=== PATIENT | female | born 1990 | race Caucasian/White ===

== ENCOUNTER 2024-12-28 09:21 | Outpatient (AMB) | payer OTHER, SELFPAY ==
--- NOTE | 2024-12-28 09:25 | MHC.PC.OV ---
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 Allergies cephalexin (From Keflex) Allergy (Verified 12/28/24 09:29) Rash Seasonal Allergies Allergy (Verified 12/28/24 09:29) Sneezing Tobacco use date assessed: 12/28/24 Dental Screening Dental Screen Date: 12/28/24 Did you have a dental visit in the last 12 months?: Yes Did you have a dental problem in the last 6 months where you did not have access to dental care?: No Was dental information given to patient?: Patient has dentist HPI HPI Comments History of Present Illness Details This is a 34-year-old female with no significant past medical history here to establish care. She endorses chronic fatigue for the past couple of years. When she sleeps 8 hours per night she does not feel well rested in the morning consistently. She feels very tired during the day. She wants to do more things, but she does not have the energy. She endorses prior evaluation with labs and EKG that were normal at her last practice. She brought copies of these today which will be sent to scanning. She does not snore to her knowledge. She had her adenoids and tonsils removed when she was a child due to apnea. She has frequent cramping in her hands. She has 1 relative who has multiple sclerosis. She eats 3 meals per day. Admits she could be drinking more water during the day, but she makes every effort to do so. Her job is quite busy. 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 She sees [facility]. She has the Mirena IUD. Patient reports she has had microscopic blood in her urine which she was told was normal due to the IUD. Denies dysuria, frequency, gross hematuria, flank or back pain. ROS: Constitutional: No unexplained weight loss, fever, chills or night sweats. Eyes: No vision changes, blurry vision, double vision, eye pain, eye redness, eye discharge. ENT: No hearing loss, sneezing, congestion, runny nose or sore throat. Respiratory: No shortness of breath, cough or sputum production. Cardiovascular: No chest pain Gastrointestinal: No anorexia, nausea, vomiting or diarrhea. No abdominal pain or blood in stool. Genitourinary: No dysuria, hematuria, urinary frequency. Neurologic: No headache, dizziness, syncope, unilateral weakness, ataxia, numbness or tingling in the extremities. Musculoskeletal: No joint swelling or redness. No back pain. Hematologic/Lymphatics: No bleeding or bruising. No painful lymph nodes. Skin: No rash Endocrine: No cold or heat intolerance. No polyuria or polydipsia. Psychiatric: No depression or anxiety. No SI/HI. Physical exam: Constitutional: Alert, in no distress. Ear, Nose and Throat: Canals clear. TMs normal. Normal nasal mucosa. No nasal discharge. No oral lesions. Neck: Supple, Full range of motion. No lymphadenopathy. No palpable thyroid masses. Respiratory: Clear to auscultation. Cardiovascular: S1 S2 regular. No murmurs. Gastrointestinal: Abdomen soft, non-tender, non-distended. Normal bowel sounds. No palpable masses. Neurologic: No focal neurological deficits. Skin: No rashes Extremities: Warm and well perfused. No clubbing, cyanosis or edema. 3+ peripheral pulses bilaterally. Psychiatric: Normal mood and affect [facility] Medical History (Updated 12/29/24 @ 08:49 by SALONI Neil) Non-restorative sleep Migraines Screening for cardiovascular condition Hand cramp Fatigue Surgical History (Updated 12/28/24 @ 12:05 by Brittany Silveira MA) H/O removal of cyst Hx of tonsillectomy Family History (Updated 12/28/24 @ 12:07 by Brittany Silveira MA) Maternal Grandmother Hypertension Hyperlipemia Bladder cancer Maternal Grandfather Diabetes Social History (Updated 12/28/24 @ 09:32 by Brittany Silveira MA) Housing: House Alcohol intake: current Patient Tobacco Use Status: Never used Tobacco e-Cigarette/Vaping Use: Never Used Second Hand Smoke Exposure: Yes service: No Current occupational status: employed 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 1. Little interest or pleasure in doing things: not at all 2. Feeling down, depressed, or hopeless: not at all 3. Trouble falling or staying asleep, or sleeping too much: not at all 4. Feeling tired or having little energy: not at all 5. Poor appetite or overeating: not at all 6. Feeling bad about yourself - or that you are a failure or have let yourself or your family down: not at all 7. Trouble concentrating on things, such as reading the newspaper or watching television: not at all 8. Moving or speaking so slowly that other people could have noticed. Or the opposite - being so fidgety or restless that you have been moving around a lot more than usual: not at all 9. Thoughts that you would be better off or of hurting yourself in some way: not at all Total score: 0 Depression Screening Interpretation: Negative Depression Screening Done: Yes 41483 - PHQ-9 Billing: Yes Source: Developed by Drs. Warren Elnea, Randa Hoyos, Brenton Aguiar and colleagues, with an educational rei from [employer]. Thrive Questionnaire Date Thrive assessed: 12/28/24 I am a: Patient What is your living situation today?: I have a steady place to live Within the past 12 months, did the food you bought not last and you didn't have the money to get more?: Never true Within the past 12 months, did you worry whether your food would run out before you got money to buy more?: Never true Do you have trouble paying for medicines?: No Do you have trouble getting transportation to medical appointments?: No Do you have trouble paying your heating and electricity bill?: No Do you have trouble taking care of your child, family member or friend?: No Do you have trouble with day-to-day activities such as bathing, preparing meals, shopping, managing finances, etc.?: No Are you currently unemployed and looking for a job?: No Are you interested in more education?: No Please select the resources that you would like help with: None Currently or been in a relationship where the following occur: No concerns reported THRIVE Score: 0 AUDIT C Alcohol Use Questionnaire (AUDIT-C) 1. How often do you have a drink containing alcohol?: Monthly or less 2. How many drinks containing alcohol do you have on a typical day when you are drinking?: 1 or 2 3. How often do you have six or more drinks on one occasion?: Never Total Score: 1 GENIA-7 AMB Questionnaire GENIA-7 Date GENIA - 7 assessed: 12/28/24 Feeling nervous, anxious, or on edge: 0 = Not at all Not being able to stop or control worryin = Not at all Worrying too much about different things: 0 = Not at all Trouble relaxin = Not at all Being so restless that it is hard to sit still: 0 = Not at all Becoming easily annoyed or irritable: 0 = Not at all Feeling afraid as if something awful might happen: 0 = Not at all Total GENIA-7 score (0-4 normal; 5-9 mild; 10-14 moderate; 15-21 severe): 0 Source: Developed by Drs. Warren Elena, Randa Hoyos, Brenton Aguiar and colleagues, with an educational rei from [employer]. GENIA-7 Assessment Billing GENIA-7 Assessment Tool: GENIA-7 Assessment 50339 Physical exam (Primary Care) Vital Signs: Last Vital Signs Temp 98.5 F 12/28/24 09:32 Pulse 87 12/28/24 09:32 BP 122/82 12/28/24 09:32 Pulse Ox 97 12/28/24 09:32 Oxygen Delivery Method Room Air 12/28/24 09:32 BMI result Body Mass Index 28.1 Tobacco/Smoking Status: Tobacco use Status Tobacco use date assessed 12/28/24 12/28/24 09:35 Patient Tobacco Use Status Never used Tobacco 12/28/24 09:35 e-Cigarette/Vaping Use Never Used 12/28/24 09:35 PHQ-9: PHQ-9 Score PHQ-9: Total score 0 12/28/24 09:54 Depression Screening Interpretation: Negative Thrive Assessment: Date of Thrive Assessment Date Thrive assessed 12/28/24 12/28/24 09:35 Currently or been in a relationship where the following occur: No concerns reported Coding Level of Care Code New Pt Level 4 (64522) Complex EM visit Add On G2211 Diagnoses Chronic fatigue R53.82 Fatigue type: chronic, unspecified Hand cramp R25.2 Non-restorative sleep G47.8 Additional Codes GENIA-7 Assessment Billing - GENIA-7 Assessment Tool: GENIA-7 Assessment 71923 ([id number]) PHQ-9 - 93734 - PHQ-9 Billing: Yes ([id number]) Assessment & Plan Assessment & Plan (1) Fatigue: Code(s): R53.83 - Other fatigue Category: Medical Qualifiers: Fatigue type: chronic, unspecified Qualified Code(s): R53.82 - Chronic fatigue, unspecified (2) Hand cramp: Code(s): R25.2 - Cramp and spasm Category: Medical (3) Non-restorative sleep: Code(s): G47.8 - Other sleep disorders Category: Medical Plan The patient will have lab work for fatigue done today. Given chronic fatigue with non restorative sleep I have ordered a sleep study. We discussed that if the workup is nondiagnostic I would like to order an MRI given family history of multiple sclerosis. She will schedule her physical in March when she is due. Sooner follow up if needed based on results. Orders: Orders Comprehensive Met. Panel 12/28/24 R25.2 - Cramp and spasm, R53.83 - Other fatigue Vitamin D 25-OH (D2 and D3) 12/28/24 M85.80 - Other specified disorders of bone density and structure, unspecified site, R25.2 - Cramp and spasm, R53.83 - Other fatigue Lyme IgG/IgM w/reflex to WB 12/28/24 R25.2 - Cramp and spasm, R53.83 - Other fatigue Magnesium 12/28/24 R25.2 - Cramp and spasm, R53.83 - Other fatigue Lipid Panel 12/28/24 Z13.6 - Encounter for screening for cardiovascular disorders Complete Blood Count Auto Diff 12/28/24 R25.2 - Cramp and spasm, R53.83 - Other fatigue Vitamin B12 and Folate 12/28/24 R25.2 - Cramp and spasm, R53.83 - Other fatigue Ferritin 12/28/24 R25.2 - Cramp and spasm, R53.83 - Other fatigue IRON PROFILE 12/28/24 R25.2 - Cramp and spasm, R53.83 - Other fatigue BARBARA Reflex Titer and Pattern 12/28/24 R53.83 - Other fatigue UA w Microscopic 12/28/24 R39.9 - Unspecified symptoms and signs involving the genitourinary system RT home sleep study Today G47.8 - Other sleep disorders, R40.0 - Somnolence, R53.82 - Chronic fatigue, unspecified
[2024-12-28 09:32] VITALS: BP 122/82; PULSE 87; TEMP 36.9; O2SAT 97; BMI 28.1
--- OUTSIDE RECORDS SUMMARY | 2024-12-28 09:38 | XMS_ITS | Encounter Summary ---
Author Organization [facility] Address [address] [place] [address] Care Team Providers Care Photoengraving Supervisor Name Role Phone Jenna Franco ASSOCIATE PRINCIPAL Primary Care Provider [phone] Encounter Details Date Type Department Care Team (Late st Contact Info) Description 02/21/2023 Orders Only [facility] MEDICAL [address] [place] [address] Provider, Nader, Social History Tobacco Use Types Packs/Day Years Used Date Smoking Tobacco: Never Passive Smoke Exposure: Never Smokeless Tobacco: Never Alcohol Use Standard Drinks/Week Comments Yes 0 (1 standard drink = 0.6 oz pur e alcohol) once or twice yearly Depression Answer Date Recorded Patient Health Questionnaire-2 Score 0 02/20/2023 Education Answer Date Recorded What is the highest level of school you have completed or the highest degree you have received? 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 Not on file Not on file documented as of this encounter Plan of Treatment Not on file documented as of this encounter Procedures Procedure Name Priority Date/Time Associated Diagnosis Comments HM PAP/HPV Routine 02/05/2022 documented in this encounter Results * Hm Pap Smear (02/05/2022) Historical Provider HEALTH MAINTENANCE Edited Result - Final documented in this encounter Visit Diagnoses Not on filedocumented in this encounter Care Teams Photoengraving Supervisor Relationship Specialty Start Date End Date Jenna Franco CNP [address] [place] [address] PCP - General Family Medicine 02/22/23 documented as of this encounter
== END 2024-12-28 10:11 | disposition home or self-care (01) ==
LOC: HO.HMCFM 09:21
PROVIDERS: PCP Physician Assistant Medical; Visit Provider Physician Assistant Medical
DX: R53.82 Chronic fatigue, unspecified (principal); R25.2 Cramp and spasm; G47.8 Other sleep disorders

== ENCOUNTER → 2024-12-28 09:21 | Outpatient (BNVA) | payer OTHER, SELFPAY | PROVIDERS: PCP Physician Assistant Medical; Visit Provider Physician Assistant Medical | DX: Z13.31 Encounter for screening for depression (principal); Z13.30 Encounter for screening examination for mental health and behavioral disorders, unspecified; R53.82 Chronic fatigue, unspecified; R25.2 Cramp and spasm; G47.8 Other sleep disorders | CPT/HCPCS: 96127 ==

== ENCOUNTER 2024-12-28 10:22 | Outpatient (REF) | payer OTHER, SELFPAY ==
[2024-12-28 14:38] LABS: Appearance Urine Clear; Color Urine Yellow; Glucose Urine UA Negative (Negative); Leukocyte Esterase Urine Moderate (2+) (Negative); Nitrite Urine Negative (Negative); PH 7.5 (5.0-9.0); Specific Gravity - Urine >= 1.030 (1.005-1.025); UMIC TRIGGER UA YES; Urine Blood Trace (Negative); Urine Ketones Trace mg/dL (Negative); Urine Protein Trace mg/dL (Neg-Trace)
[2024-12-28 14:40] LABS: MANUAL DIFF FLAG NO
[2024-12-28 14:50] LABS: Bacteria Urine 1+ (None Seen); Hyaline Casts Urine 0-2 /LPF (0-2); RBC Urine 0-2 /HPF (0-2); WBC Urine 0-5 /HPF (0-5)
[2024-12-28 14:51] LABS: Basophils Percent Auto 0.8 % (0-2); Eosinophils Absolute Auto 0.1 X10*3/uL (0.0-0.4); Eosinophils Percent Auto 1.1 % (0-4); Hematocrit 44.8 % (37.0-47.0); Hemoglobin 14.8 g/dl (12.0-16.0); Imm Gran Abs Auto 0.03 X10*3/uL (0.00-0.03); Imm Gran Pct Auto 0.6 % (0.0-0.4); Lymphocytes Absolute Auto 1.3 X10*3/uL (1.2-4.9); Lymphocytes Percent Auto 27.2 % (20-40); Mean Corpuscular Hemoglobin 28.2 pg (27.0-33.0); Mean Corpuscular Volume 85.3 fL (80.0-98.0); Mean Platelet Volume 10.3 fL (9.4-12.3); Monocytes Absolute Auto 0.6 X10*3/uL (0.1-1.2); Neutrophils Absolute Auto 2.8 x10*3/uL (2.0-8.3); Neutrophils Percent Auto 58.3 % (45-73); Platelet Count 279 X10*3/uL (160-400); Red Blood Count 5.25 X10*6/uL (4.20-5.50); Red Cell Distribution Width 12.9 % (11.0-16.0); White Blood Count 4.7 X10*3/uL (4.8-10.8)
[2024-12-28 15:08] LABS: Alanine Aminotransferase 15 U/L (0-31); Albumin Level 4.7 g/dL (3.5-5.0); Alkaline Phosphatase 78 U/L (39-117); Anion Gap 11 (12-20); Aspartate Amino Transferase 28 U/L (5-31); Bilirubin Total 0.6 mg/dL (0.0-1.0); Blood Urea Nitrogen 12 mg/dL (9-16); Calcium 9.3 mg/dL (8.4-10.2); Carbon Dioxide 25 mmol/L (22-29); Chloride 108 mmol/L (96-108); Cholesterol 168 mg/dL (<200); Estimated Glomerular Filt Rate > 60; Glucose Random 90 mg/dL (60-115); HDL Cholesterol 50 mg/dL (>40); Iron 100 mcg/dL (30-160); LDL Cholesterol Calculated 106 mg/dL (<100); Magnesium 1.9 mg/dL (1.6-2.6); Percent Iron Saturation 34 % (15-50); Potassium 3.7 mmol/L (3.3-5.1); Sodium 140 mmol/L (135-145); Total Iron Binding Capacity 295 mcg/dL (228-428); Total Protein 7.4 g/dL (6.5-8.0); Triglycerides 64 mg/dL (<150); Unsaturated Iron Binding 195 ug/dL
[2024-12-28 15:26] LABS: Ferritin 122 ng/mL (10-122)
[2024-12-28 15:35] LABS: Folate 9.2 ng/mL (> or = 4.0); Vitamin B12 414 pg/mL (200-900)
[2024-12-30 06:34] LABS: ANA Pattern 2 Nuclear, Speckled; Anti Nuclear Antibody Pattern Nuclear, Nucleolar; Anti Nuclear Antibody Screen POSITIVE (NEGATIVE)
[2024-12-30 12:33] LABS: Lyme Abs Screen <0.90 index
[2024-12-31 12:02] LABS: Vitamin D 25-OH, D2 <4 ng/mL; Vitamin D 25-OH, D3 27 ng/mL; Vitamin D 25-OH, Total 27 ng/mL (30-100)
== END 2024-12-28 10:23 | disposition home or self-care (01) ==
LOC: HO.WFDLDS 10:22
PROVIDERS: Visit Provider Physician Assistant Medical
DX: R25.2 Cramp and spasm (principal); R39.9 Unspecified symptoms and signs involving the genitourinary system; Z13.6 Encounter for screening for cardiovascular disorders; M85.80 Other specified disorders of bone density and structure, unspecified site; R53.82 Chronic fatigue, unspecified
CPT/HCPCS: 36415; 80053; 80061; 81001; 82306; 82607; 82728; 82746; 83540; 83735; 85025; 86038; 86039; 86617; 86618

== ENCOUNTER → 2025-03-22 15:58 | Outpatient (REF) | payer OTHER, SELFPAY | LOC: HO.SL 15:58 | PROVIDERS: PCP Physician Assistant Medical; Visit Provider Physician Assistant Medical | DX: G47.8 Other sleep disorders (principal); R53.82 Chronic fatigue, unspecified; R40.0 Somnolence; R06.83 Snoring | CPT/HCPCS: 95806 ==

== ENCOUNTER → 2025-03-22 16:04 | Outpatient (BNV) | payer OTHER, SELFPAY | PROVIDERS: PCP Physician Assistant Medical; Visit Provider Internal Medicine | DX: R06.83 Snoring (principal) | CPT/HCPCS: 95806 ==

== ENCOUNTER 2025-04-05 14:36 | Outpatient (AMB) | payer OTHER, SELFPAY ==
--- NOTE | 2025-04-05 15:02 | A.OFFPC_ITS ---
Vital Signs 04/05/25 15:07 Height 5 ft 6 in Weight 179 lb 4 oz BMI 28.9 BP 100/68 Blood Pressure Location Rt brachial Position Sitting Pulse 77 Pulse Source Pulse Oximeter Temp 98.7 F Temp Source Temporal Artery Scan Pulse Oximetry (%) 98 Oxygen Delivery Method Room Air Intake Visit Reasons: physical exam Intake Note: Carolina presents in the office today for her physical exam. Allergies cephalexin (From Keflex) Allergy (Verified 04/05/25 15:06) Rash Seasonal Allergies Allergy (Verified 04/05/25 15:06) Sneezing Medication List - Last Reconciled 04/06/25 by SALONI Neil cholecalciferol (vitamin D3) 25 mcg PO DAILY levonorgestrel (Mirena) intrauterine Tobacco use date assessed: 04/05/25 Dental Screening Dental Screen Date: 04/05/25 Did you have a dental visit in the last 12 months?: Yes Did you have a dental problem in the last 6 months where you did not have access to dental care?: No Was dental information given to patient?: Patient has dentist HPI HPI Comments History of Present Illness Details 35-year-old female with a past medical h istory of right kidney stone, vitamin-D deficiency, microhematuria, positive BARBARA, fatigue and PFO presents for a physical. She has been referred to Rheumatology, and she has a consult on 05/03/2025 for positive BARBARA, fatigue and hand cramps. She also reported circumoral cyanosis noticed by her coworkers. She had an EKG which was normal on 01/27/2025. She had an echo with bubble study which showed she does have a PFO. She was not aware of this. Denies chest pain or shortness of breath. She has been referred to Cardiology. She had microhematuria on labs, and she had an ultrasound which showed a 6 mm renal stone. She has an appointment with Urology on 04/19/2025. Denies flank pain, dysuria, hematuria or frequency. She is getting her flu vaccine at work. TD 12/20/19. Eye and dental exams are up-to-date. She has a dermatology appointment in August 2025. She had her gynecology appointment a week ago. She is taking her vitamin-D supplement, and she will return to repeat lab work. ROS: Constitutional: No unexplained weight loss, fever, chills or night sweats. +fatigue. Eyes: No vision changes, blurry vision, double vision, eye pain, eye redness, eye discharge. ENT: No hearing loss, sneezing, congestion, runny nose or sore throat. Respiratory: No shortness of breath, cough or sputum production. Cardiovascular: No chest pain, chest pressure or chest discomfort. No palpitations or pedal edema. Gastrointestinal: No anorexia, nausea, vomiting or diarrhea. No abdominal pain or blood in stool. Genitourinary: No dysuria, hematuria, urinary frequency. Neurologic: No headache, dizziness, syncope, unilateral weakness, ataxia, numbness or tingling in the extremities. Musculoskeletal: Frequent hand cramping Hematologic/Lymphatics: No bleeding or bruising. No painful lymph nodes. Skin: No rash Endocrine: No cold or heat intolerance. No polyuria or polydipsia. Psychiatric: No depression or anxiety. No SI/HI. Physical exam: Constitutional: Alert, in no distress. Head: Normocephalic. Eyes: Pupils are equal, round and reactive to light. Extraocular muscles intact. Ear, Nose and Throat: Canals clear. TMs normal. Normal nasal mucosa. No nasal discharge. No oral lesions. Neck: Supple, Full range of motion. No lymphadenopathy. No palpable thyroid masses. Respiratory: Clear to auscultation. Cardiovascular: S1 S2 regular. No murmurs.. Gastrointestinal: Abdomen soft, non-tender, non-distended. Normal bowel sounds. No palpable masses. Genitourinary: No costovertebral angle tenderness. Neurologic: No focal neurological deficits. Symmetric patellar reflexes. Moves all extremities spontaneously. Sensation intact bilaterally. Skin: No rashes or discoloration on exam today. Musculoskeletal: No gross deformities. Normal range of motion. Extremities: Warm and well perfused. No clubbing, cyanosis or edema. Intact peripheral pulses bilaterally.. Psychiatric: Normal mood and affect [facility] Medical History (Updated 04/06/25 @ 17:22 by SALONI Neil) Routine physical examination PFO (patent foramen ovale) Circumoral cyanosis Vitamin D deficiency Microhematuria Positive BARBARA (antinuclear antibody) Non-restorative sleep Migraines Screening for cardiovascular condition Hand cramp Fatigue Surgical History (Updated 12/28/24 @ 12:05 by Brittany Silveira MA) H/O removal of cyst Hx of tonsillectomy Family History Maternal Grandmother Hypertension Hyperlipemia Bladder cancer Maternal Grandfather Diabetes Social History (Updated 04/05/25 @ 15:07 by Brittany Silveira CMA) Housing: House Alcohol intake: current Patient Tobacco Use Status: Never used Tobacco e-Cigarette/Vaping Use: Never Used Second Hand Smoke Exposure: Yes service: No Current occupational status: employed 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 1. Little interest or pleasure in doing things: not at all 2. Feeling down, depressed, or hopeless: not at all 3. Trouble falling or staying asleep, or sleeping too much: not at all 4. Feeling tired or having little energy: not at all 5. Poor appetite or overeating: not at all 6. Feeling bad about yourself - or that you are a failure or have let yourself or your family down: not at all 7. Trouble concentrating on things, such as reading the newspaper or watching television: not at all 8. Moving or speaking so slowly that other people could have noticed. Or the opposite - being so fidgety or restless that you have been moving around a lot more than usual: not at all 9. Thoughts that you would be better off or of hurting yourself in some way: not at all Total score: 0 Depression Screening Interpretation: Negative Depression Screening Done: Yes Source: Developed by Drs. Warren Elena, Randa Hoyos, Brenton Aguiar and colleagues, with an educational rei from [employer]. Thrive Questionnaire Date Thrive assessed: 04/05/25 I am a: Patient What is your living situation today?: I have a steady place to live Within the past 12 months, did the food you bought not last and you didn't have the money to get more?: Never true Within the past 12 months, did you worry whether your food would run out before you got money to buy more?: Never true Do you have trouble paying for medicines?: No Do you have trouble getting transportation to medical appointments?: No Do you have trouble paying your heating and electricity bill?: No Do you have trouble taking care of your child, family member or friend?: No Do you have trouble with day-to-day activities such as bathing, preparing meals, shopping, managing finances, etc.?: No Are you currently unemployed and looking for a job?: No Are you interested in more education?: No Please select the resources that you would like help with: None Currently or been in a relationship where the following occur: No concerns reported THRIVE Score: 0 GENIA-7 AMB Questionnaire GENIA-7 Date GENIA - 7 assessed: 04/05/25 Feeling nervous, anxious, or on edge: 0 = Not at all Not being able to stop or control worryin = Not at all Worrying too much about different things: 0 = Not at all Trouble relaxin = Not at all Being so restless that it is hard to sit still: 0 = Not at all Becoming easily annoyed or irritable: 0 = Not at all Feeling afraid as if something awful might happen: 0 = Not at all Total GENIA-7 score (0-4 normal; 5-9 mild; 10-14 moderate; 15-21 severe): 0 Source: Developed by Drs. Warren Elena, Randa Hoyos, Brenton Aguiar and colleagues, with an educational rei from [employer]. GENIA-7 Assessment Billing GENIA-7 Assessment Tool: GENIA-7 Assessment 50125 Physical exam (Primary Care) Vital Signs: Last Vital Signs Temp 98.7 F 04/05/25 15:07 Pulse 77 04/05/25 15:07 BP 100/68 04/05/25 15:07 Pulse Ox 98 04/05/25 15:07 Oxygen Delivery Method Room Air 04/05/25 15:07 BMI result Body Mass Index 28.9 Tobacco/Smoking Status: Tobacco use Status Tobacco use date assessed 04/05/25 04/05/25 15:10 Patient Tobacco Use Status Never used Tobacco 04/05/25 15:07 e-Cigarette/Vaping Use Never Used 04/05/25 15:07 PHQ-9: PHQ-9 Score PHQ-9: Total score 0 04/05/25 15:25 Depression Screening Interpretation: Negative Thrive Assessment: Date of Thrive Assessment Date Thrive assessed 04/05/25 04/05/25 15:04 Currently or been in a relationship where the following occur: No concerns reported Coding Level of Care Code Est Pt Prev Care 18-39y(54654) Diagnoses Routine physical examination Z00.00 PFO (patent foramen ovale) Q21.12 Vitamin D deficiency E55.9 Right kidney stone N20.0 Positive BARBARA (antinuclear antibody) R76.8 Circumoral cyanosis R23.0 Chronic fatigue R53.82 Fatigue type: chronic, unspecified Additional Codes GENIA-7 Assessment Billing - GENIA-7 Assessment Tool: GENIA-7 Assessment 16759 ([id number]) Assessment & Plan Assessment & Plan (1) Routine physical examination: Code(s): Z00.00 - Encounter for general adult medical examination without abnormal fi ndings Category: Medical (2) PFO (patent foramen ovale): Code(s): Q21.12 - Patent foramen ovale Category: Medical (3) Vitamin D deficiency: Code(s): E55.9 - Vitamin D deficiency, unspecified Category: Medical (4) Right kidney stone: Code(s): N20.0 - Calculus of kidney Category: Medical (5) Positive BARBARA (antinuclear antibody): Code(s): R76.8 - Other specified abnormal immunological findings in serum Category: Medical (6) Circumoral cyanosis: Code(s): R23.0 - Cyanosis Category: Medical (7) Fatigue: Code(s): R53.83 - Other fatigue Category: Medical Qualifiers: Fatigue type: chronic, unspecified Qualified Code(s): R53.82 - Chronic fatigue, unspecified Plan Patient is seen today for a routine physical. As part of this visit we reviewed the following issues, which are considered and essential part of preventative health in this age group: - Annual Nuclear Medicine Officer exam - Blood pressure screening - Cholesterol screening - Osteoporosis prevention including calcium/vitamin D intake, weight bearing exercise & smoking cessation - Nutritional and exercise counseling - Screening for depression - Education about skin cancer - Recommendations about immunizations - Recommendation of an eye exam - Screening for substance abuse She will keep follow up appointment scheduled with Cardiology, Rheumatology and Urology as noted in HPI. She is on vitamin-D, and she will repeat her blood work.
[2025-04-05 15:07] VITALS: BP 100/68; PULSE 77; TEMP 37.1; O2SAT 98; BMI 28.9
--- OUTSIDE RECORDS SUMMARY | 2025-04-05 17:03 | XMS_ITS | Encounter Summary ---
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
--- OUTSIDE RECORDS SUMMARY | 2025-04-05 17:03 | XMS_ITS | Clinical Summary ---
Author Organization [employer] Address [address] [facility] [address] [place] [address] Care Team Providers Care Marble Setter Name Role Phone Jenna Franco CNP Primary Care Provider Allergies Active Allergy Reactions Criticality Noted Date Comments Cephalexin Rash Low 09/19/2023 Medications Levonorgestrel (Mirena, 52 MG,) 20 MCG/DAY intrauterine device Mirena Active pseudoephedrine-g uaiFENesin ER (Mucinex D) 60-600 MG 12 hr tabletIndications :Acute non-recurrent maxillary sinusitis,Acute non-recurrent frontal sinusitis Take 1 tablet by mouth every 12 (twelve) hours. Do not crush, chew, or split. 60 tablet 11 08/04/2024 08/04/19 26 Active Active Problems Problem Noted Date Diagnosed Date Acute non-recurrent frontal sinusitis 08/04/2024 PVC's (premature ventricular contractions) 08/04 Acute non-recurrent maxillary sinusitis 09/19/19 24 Assessment & Plan (09/19/2023 4:54 PM EDT): >2w hx of right ear fullness and this past week has been having some right cheek pain. She had another PYROTECHNIC ASSEMBLER at the office where she works look in her right ear about 2w and the PYROTECHNIC ASSEMBLER noted that she had increased fluid in her ears and had the pt take Mucinex to clear her ears. She has not tried anything else yet. She states over the last week she has been having right sided cheek pain with some upper tooth pain. She is UTD on dental exams. No problems chewing/swallowing. No sore throat. No headaches (hx of migraines but no new headaches). Eating and drinking well. No fever/chills/body aches. 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 Does not have any seasonal allergies. Discussed that this could be a viral infection but with the ongoing worsening symptoms, we will treat acute bacterial sinusitis. Will prescribe Augmentin (10% cross reactivity with cephalos, discussed this with the pt). Discussed SE/AE. She is in agreement with tx. Discussed bid for 10d. Discussed increased fluid/water intake. Discussed Tylenol and Ibuprofen for pain if needed. Discussed that if she gets intractable headaches, high fevers, shortness of breath/diff breathing, etc., that she needs to go to the ER. Follow up as needed. Benign microscopic hematuria 01/05/2023 Dysmenorrhea 01/05/2023 Migraine with aura, not intr actable, without status migrainosus 01/05/2023 Immunizations Immunization Administration Dates Next Due Influenza injectable quadriv alent preservative free 04/29/2023 Influenza, IIV3, injectable 03/23/2019, 8,04/07/2014 Influenza, Split (incl. jian fied surface antigen) 08/03/2010 Meningococcal MCV4P [id number]-135 06/02/2009 Pfizer Covid-19 Vaccine 12+ 10/08/2020, 1 TD (adult), 2 Lf tetanus tox oid, preservative free, adsorbed 12/27/2016 Tdap 10/02/2006 Social History Tobacco Use Types Packs/Day Years Used Date Smoking Tobacco: Never Passive Smoke Exposure: Never Smokeless Tobacco: Never Tobacco Cessation:Counseling Given: Not Answered Alcohol Use Standard Drinks/Week Comments Yes 0 (1 standard drink = 0.6 oz pur e alcohol) once or twice yearly Alcohol Answer Date Recorded How often do you have a drink containing alcohol ? 0 08/04/2024 How many drinks containing a lcohol do you have on a typical day when you are drinking? 0 08/04/2024 How often do you have six or more drinks on one occasion? 0 08/04/2024 Housing Stability Answer Date Recorded What is your housing situation today? I have isabelle lewis 03/28/[address] you li ve. Do you have problems with any of the following? None of the above 03/28/2024 Food Insecurity Answer Date Recorded Within the past 12 months, y ou worried that your food would run out before you got money to buy more: Never True 03/28/2024 Within the past 12 months,th e food you bought just didn't last and you didn't have enough money to get more: Never True Transportation Answer Date Recorded In the past 12 months, has l ack of transportation kept you from medical appts, meetings, work or from getting things needed for daily living? No 03/28/2024 Intimate Partner Violence Answer Date R ecorded Within the last year, have y ou been afraid of your partner or ex-partner? 2 08/04/2024 Within the last year, have y ou been humiliated or emotionally abused in other ways by your partner or ex-partner? 2 Within the last year, have y ou been kicked, hit, slapped, or otherwise physically hurt by your partner or ex-partner? 2 08/04/2024 Within the last year, have y ou been raped or forced to have any kind of sexual activity by your partner or ex-partner? 2 08/04/2024 Utilities Answer Date Recorded In the past 12 months, has t he electric, gas, oil or water company threatened to shut off services in your home? No 03/28/2024 Depression Answer Date Recorded Patient Health Questionnaire-2 Score 0 03/28/2024 Internet Access Answer Date Recorded Internet Access Q1 Yes 03/28/2024 Internet Access Q2 Not on file 03/28/2024 Education Answer Date Recorded What is the highest level of school you have completed or the highest degree you have received? 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 Not on file Not on file Last Filed Vital Signs Vital Sign Reading Time Taken Comments Blood Pressure 120/62 08/04/2024 10:47 AM EST Pulse 100 08/04/2024 10:47 AM EST Temperature 36.5 C (97.7 F) 03/28/2024 8:25 AM EDT Respiratory Rate 16 02/21/2024 2:46 PM EDT Oxygen Saturation 98% 08/04/2024 10: 47 AM EST Inhaled Oxygen Concentration - - Weight 76.6 kg (168 lb 12.8 oz) 025 10:47 AM EST Height 167.6 cm (5' 6 ) 08/04/2024 10:4 7 AM EST Body Mass Index 27.25 08/04/2024 10:47 AM EST Plan of Treatment Health Maintenance Due Date Last Done Comments Disability Screening 1992 Family Planning (PISQ) 02/27/2007 HPV Vaccines (1 - 3-dose series) 02/27/2007 Hepatitis B Vaccines (1 of 3 - 19+ 3-dose series) 02/27/2011 HPV/Cotest 02/27/2022 Cervical Cancer Screening 02/05/2025 Pap Smear 02/05/2025 02/05/2022 COVID-19 Vaccine (3 - season) 2025 10/08/2020, 09/17/2020 Influenza Vaccine (#1) 2025 , 03/23/2019, 03/27/2018, Additional history exists Depression Screening 03/28/2025 03/28/2024, 03/28/20 24 SDOH Screening 03/28/2025 03/28/2024 Alcohol/Substance Use Screening 08/04/2025 08/04/2024 Tobacco Screening 08/04/2025 08/04/2024 DTaP/Tdap/Td Vaccines (3 - Td or Tdap) 12/27/2026 12/27/2016, 10/02/2006 Zoster Vaccines (1 of 2) 02/27/2042 RSV Patients and Patients Aged 60 years or older (1 - 1-dose 75+ series) 02/27/2067 Meningococcal Vaccine Completed 06/02/2009 HIV Screening Completed 02/05/2022, 02/05/2022 Hepatitis C Screening Completed 02/05/2022, 022 HIB Vaccines Aged Out No longer eligi ble based on patient's age to complete this topic Hepatitis A Vaccines Aged Out No long er eligible based on patient's age to complete this topic IPV Vaccines Aged Out No longer eligi ble based on patient's age to complete this topic Meningococcal B Vaccine Aged Out No l onger eligible based on patient's age to complete this topic Pneumococcal Vaccine: Pediatrics (0 to 5 Years) and At-Risk Patients (6 to 49) Years Aged Out No longer eligible based on patient's age to complete this topic RSV under 20 months Aged Out No longe r eligible based on patient's age to complete this topic Rotavirus Vaccines Aged Out No longer eligible based on patient's age to complete this topic Procedures Procedure Name Priority Date/Time Associated Diagnosis Comments HIV 1/2 ANTIGEN/ANTIBODY, FOURTH GENERATION W/RFL Routine 02/05/2022 9:10 AM EDT ZZZ HISTORICAL HEPATITIS C ANTIBODY TEST Routine 02/05/2022 9:09 AM EDT HM PAP/HPV Routine 02/05/2022 from Last 3 Months or Most Recently Relevant to Health Maintenance Results * -HIV AB-AG 4TH GENERATION (02/05/2022 9:10 AM EDT) RESULT 4TH GEN HIV AB-AG NEGATIVE (NEG) [facility] Comment: Negative for antibodies to HIV 1 and HIV 2 and P24 antigen. Reference range: Negative Additional note: Written patient authorization is required for each separate release of this test result. This test was performed on the [employer] Supervisory Historian immunoassay system. 02/05/2022 9:10 AM EDT us Jenna Franco [facility] B[facility] ORDERABLES Final Re sult [facility] [address] * -Hepatitis C Antibody Test (02/05/2022 9:09 AM EDT) ANTI-HEPATITIS C NEGATIVE (NEG) [facility] Comment: Reference range: Negative This test was performed on the [employer] Supervisory Historian immunoassay system. 02/05/2022 9:09 AM EDT us Jenna Franco DELIVERY TABLE OPERATOR HISTORICAL/NON ORDERABLE LABS Final Result [facility] [address] * Pap Smear (02/05/2022) Historical Provider HEALTH MAINTENANCE Edited Result - Final from Last 3 Months or Most Recently Relevant to Health Maintenance Insurance [facility] , [address] [place], [place] [address] SH[facility] Advance Directives Documents on File Type Date Recorded Patient Ball Assembler Expl anation HealthCare Proxy 02/05/2022 7:58 AM HCP Care Teams Marble Setter Relationship Specialty Start Date End Date Jenna Franco CNP [address] [place] [address] PCP - General Family Medicine 02/22/23
== END 2025-04-05 15:41 | disposition home or self-care (01) ==
LOC: HO.HMCFM 14:37
PROVIDERS: PCP Physician Assistant Medical; Visit Provider Physician Assistant Medical
DX: Z00.00 Encounter for general adult medical examination without abnormal findings (principal); Q21.12 Patent foramen ovale; E55.9 Vitamin D deficiency, unspecified; R23.0 Cyanosis; R53.82 Chronic fatigue, unspecified; N20.0 Calculus of kidney; R76.9 Abnormal immunological finding in serum, unspecified

== ENCOUNTER → 2025-04-05 14:36 | Outpatient (BNVA) | payer OTHER, SELFPAY | PROVIDERS: PCP Physician Assistant Medical; Visit Provider Physician Assistant Medical | DX: Z00.00 Encounter for general adult medical examination without abnormal findings (principal); E55.9 Vitamin D deficiency, unspecified; N20.0 Calculus of kidney; R76.89 Other specified abnormal immunological findings in serum; R23.0 Cyanosis; R53.82 Chronic fatigue, unspecified; Q21.12 Patent foramen ovale; Z13.31 Encounter for screening for depression; Z13.39 Encounter for screening examination for other mental health and behavioral disorders | CPT/HCPCS: 96127 ==

== ENCOUNTER 2025-04-19 14:41 | Outpatient (AMB) | payer OTHER, SELFPAY ==
--- NOTE | 2025-04-19 14:58 | A.OFFVIS_ITS ---
Intake Visit Reasons: stones Intake Note: New patient presents today for initial visit for kidney stones Urology Medication:None Blood Thinner:None Antibiotic Allergies:None Allergies cephalexin (From Keflex) Allergy (Verified 04/19/25 14:58) Rash Seasonal Allergies Allergy (Verified 04/19/25 14:58) Sneezing HPI Comments Details: Carolina is here for a new patient evaluation for kidney stones. She had a renal ultrasound done on 01/18/2025 noting a 6 mm echogenic focus in the lower pole of the right kidney no hydronephrosis. I have discussed diet modification to decrease risk of forming more kidney stones. I have discussed low oxalate diet and specific foods to avoid including certain green leafy vegetables, chocalate, nuts, tea, beets, rubarb; low sodium, decreased use of animal protein and the importance of hydration drinking up to 2-2.5 liters of fluids and use of adding lemon to water to increase citrate in the diet. A pamphlet is also provided today. Plan CT stone protocol. 24 hr urine. Discussed treatment options to include right ESWL PFSH Medical History Routine physical examination PFO (patent foramen ovale) Circumoral cyanosis Vitamin D deficiency Microhematuria Positive BARBARA (antinuclear antibody) Non-restorative sleep Migraines Screening for cardiovascular condition Hand cramp Fatigue Surgical History H/O removal of cyst Hx of tonsillectomy Family History Maternal Grandmother Hypertension Hyperlipemia Bladder cancer Maternal Grandfather Diabetes Social History Housing: House Alcohol intake: current Patient Tobacco Use Status: Never used Tobacco e-Cigarette/Vaping Use: Never Used Second Hand Smoke Exposure: Yes service: No Current occupational status: employed 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 Current occupational exposures/hazards: No Cognitive needs: No Hearing needs: No Vision needs: No Review of Systems Const All systems reviewed & are unremarkable except as noted in HPI and below Reports no additional complaints Eyes Reports no additional complaints ENT Reports no additional complaints Card Reports no additional complaints Resp Reports no additional complaints GI Reports no additional complaints Reports as per HPI Musc Reports no additional complaints Skin/Breast Reports system reviewed and no additional complaints, except as documented Neuro Reports no additional complaints Psych Reports no additional complaints Endo Reports no additional complaints Pranay/Lymph Reports no additional complaints Aller/Immun Reports no additional complaints Physical Exam Const General: cooperative, healthy appearing and no acute distress Orientation/consciousness: patient oriented x3 HEENT Head: Yes normal to inspection, Yes normocephalic and Yes atraumatic Eyes Conjunctivae: conjunctivae normal Neck Neck: Yes normal visual inspection and Yes trachea midline Chest Chest palpation & inspection: normal inspection of the chest Resp Effort & Inspection: normal respiratory effort GI Inspection: Yes normal to inspection Neuro General: patient oriented x3 Psych Appearance: grossly normal Assessment & Plan Assessment & Plan (1) Right kidney stone: Code(s): N20.0 - Calculus of kidney Category: Medical (2) Microhematuria: Code(s): R31.29 - Other microscopic hematuria Category: Medical Plan Plan CT stone protocol. 24 hr urine. Discussed treatment options to include right ESWL Orders: Orders CT kidney stone Today N20.0 - Calculus of kidney Patient Instructions: The patient had an opportunity to ask questions regarding treatment plan. The patient expressed understanding and agreement with the above treatment plan. The patient is aware they should contact our office by phone for worsening of their current condition or the appearance of new symptoms. Compliance is encouraged with any medications and followup testing that is ordered. It is a privilege to be allowed the opportunity to participate in the urologic care of your patient. If you have any questions or concerns regarding treatment for the above conditions please do not hesitate to contact me. The office telephone contact is [phone]. This note is constructed in part using voice recognition software. While every effort has been made to ensure accuracy neighborhood aide errors may have been included. Yours sincerely, Verónica Weathers MD Coding Level of Care Code New Pt Level 4 (50306) Diagnoses Right kidney stone N20.0 Microhematuria R31.29
== END 2025-04-19 15:23 | disposition home or self-care (01) ==
LOC: HO.HUSH 14:42
PROVIDERS: PCP Physician Assistant Medical; Visit Provider Urology
DX: N20.0 Calculus of kidney (principal); R31.29 Other microscopic hematuria
CPT/HCPCS: 99204

== ENCOUNTER → 2025-04-19 14:41 | Outpatient (BNVA) | payer OTHER, SELFPAY | PROVIDERS: PCP Physician Assistant Medical; Visit Provider Urology | DX: N20.0 Calculus of kidney (principal); R31.29 Other microscopic hematuria | CPT/HCPCS: 81003 ==

== ENCOUNTER 2025-06-07 16:07 | Outpatient (AMB) | payer OTHER, SELFPAY ==
--- NOTE | 2025-06-07 16:08 | MHC.OFFVIS ---
Intake Visit Reasons: 7w/CT/Litholink Intake Note: Patient presents today for a 7w/CT/Litholink 04/26 Litholink Completed 05/24 Abdomen + Pelvic CT Urology Medication:None Blood Thinner:None Antibiotic Allergies:None Allergies cephalexin (From Keflex) Allergy (Verified 06/07/25 16:09) Rash Seasonal Allergies Allergy (Verified 06/07/25 16:09) Sneezing HPI Comments Details: 06/07/25-- History of Present Illness The patient is a 35 year old female presenting for a telehealth follow-up visit to review recent test results. She recently underwent a 24-hour urine collection and a CT scan as part of her evaluation. Discussed 24 hour urine results collected:04/26/25 Total volume 1.99 L, Calcium 96 mg; Oxalate 26 mg, Citrate 761 mg, Sodium 119. Instructed on importance of fluid intake. Results - CT scan: No stones noted. - 24-hour urine collection: Within normal limits. Plan 1. Nephrolithiasis - A review of the CT scan revealed no stones. - The 24-hour urine collection results were within normal limits. - The patient is advised to follow up as needed (PRN). 04/19/25--Carolina is here for a new patient evaluation for kidney stones. She had a renal ultrasound done on 01/18/2025 noting a 6 mm echogenic focus in the lower pole of the right kidney no hydronephrosis. I have discussed diet modification to decrease risk of forming more kidney stones. I have discussed low oxalate diet and specific foods to avoid including certain green leafy vegetables, chocalate, nuts, tea, beets, rubarb; low sodium, decreased use of animal protein and the importance of hydration drinking up to 2-2.5 liters of fluids and use of adding lemon to water to increase citrate in the diet. A pamphlet is also provided today. Plan CT stone protocol. 24 hr urine. Discussed treatment options to include right ESWL PFSH Medical History Routine physical examination PFO (patent foramen ovale) Circumoral cyanosis Vitamin D deficiency Microhematuria Positive BARBARA (antinuclear antibody) Non-restorative sleep Migraines Screening for cardiovascular condition Hand cramp Fatigue Surgical History H/O removal of cyst Hx of tonsillectomy Family History Maternal Grandmother Hypertension Hyperlipemia Bladder cancer Maternal Grandfather Diabetes Social History Housing: House Alcohol intake: current Patient Tobacco Use Status: Never used Tobacco e-Cigarette/Vaping Use: Never Used Second Hand Smoke Exposure: Yes service: No Current occupational status: employed 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 Current occupational exposures/hazards: No Cognitive needs: No Hearing needs: No Vision needs: No Review of Systems Const All systems reviewed & are unremarkable except as noted in HPI and below Reports no additional complaints Eyes Reports no additional complaints ENT Reports no additional complaints Card Reports no additional complaints Resp Reports no additional complaints GI Reports no additional complaints Reports as per HPI Musc Reports no additional complaints Skin/Breast Reports system reviewed and no additional complaints, except as documented Neuro Reports no additional complaints Psych Reports no additional complaints Endo Reports no additional complaints Pranay/Lymph Reports no additional complaints Aller/Immun Reports no additional complaints Telehealth Telehealth Telehealth [facility]: [facility] Location of provider rendering services: practice address Location of patient: address on file Patient Identification confirmed using: Name, : Yes Telehealth method: video Patient verbally consented to treatment: Yes Patient verbally consented to billing insurance company: Yes Patient informed of any privacy concerns related to visit: Yes Assessment & Plan Assessment & Plan (1) History of kidney stones: Code(s): Z87.442 - Personal history of urinary calculi Category: Medical Plan Plan 1. Nephrolithiasis - A review of the CT scan revealed no stones. - The 24-hour urine collection results were within normal limits. - The patient is advised to follow up as needed (PRN). Patient Instructions: The patient had an opportunity to ask questions regarding treatment plan. The patient expressed understanding and agreement with the above treatment plan. The patient is aware they should contact our office by phone for worsening of their current condition or the appearance of new symptoms. Compliance is encouraged with any medications and followup testing that is ordered. It is a privilege to be allowed the opportunity to participate in the urologic care of your patient. If you have any questions or concerns regarding treatment for the above conditions please do not hesitate to contact me. The office telephone contact is [phone]. This note is constructed in part using voice recognition software. While every effort has been made to ensure accuracy clinical documentation nurse errors may have been included. Yours sincerely, Verónica Weathers MD Scribe Plan - Not visible on output: Patient was informed and verbally consented to the use of an ambient scribe for clinic note documentation during this visit. Coding Level of Care Code Tele Est Pt Level 3 (72673) Diagnoses History of kidney stones Z87.442
--- OUTSIDE RECORDS SUMMARY | 2025-06-08 01:38 | XMS_ITS | Encounter Summary ---
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
--- OUTSIDE RECORDS SUMMARY | 2025-06-08 01:38 | XMS_ITS | Clinical Summary ---
Author Organization [employer] Address [address] [facility] [address] [place] [address] Care Team Providers Care Brew House Supervisor Name Role Phone Erendira Alfaro CONDENSER TESTER Primary Care Provider [phone] Allergies Active Allergy Reactions Criticality Noted Date [...] some right cheek pain. 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 Reference range: Negative Additional note: Written patient authorization is required for each separate release of this test result. This test was performed on the [employer] Materials Planning Manager immunoassay system. 02/05/2022 9:10 AM EDT us Jenna Franco [facility] BLOOD ORDERABLES Final Re sult [facility] [address] * -Hepatitis C Antibody Test (02/05/2022 9:09 AM EDT) ANTI-HEPATITIS C NEGATIVE (NEG) [facility] Comment: Reference range: Negative This test was performed on the [employer] Materials Planning Manager immunoassay system. 02/05/2022 9:09 AM EDT us Jenna Franco HORSE RACE TIMER HISTORICAL/NON ORDERABLE LABS Final Result [facility] [address] * Pap Smear (02/05/2022) Historical Provider HEALTH MAINTENANCE Edited Result - Final from Last 3 Months or Most Recently Relevant to Health Maintenance Insurance [facility] , [address] [place], [place] [address] SHARED [facility] Advance Directives Documents on File Type Date Recorded Patient Curing Finisher Expl anation HealthCare Proxy 02/05/2022 7:58 AM HCP Care Teams Brew House Supervisor Relationship Specialty Start Date End Date Erendira Alfaro NP [address] [place] [address] PCP - General 06/01/25
== END 2025-06-07 16:38 | disposition home or self-care (01) ==
LOC: HO.HUSH 16:07
PROVIDERS: PCP Physician Assistant Medical; Visit Provider Urology
DX: Z87.442 Personal history of urinary calculi (principal)
CPT/HCPCS: 99213